=== PATIENT | female | born 1960 | race Hispanic/Latino ===

== ENCOUNTER 2018-08-23 12:55 | Outpatient (CLI) | payer OTHER ==
--- NOTE | 2018-08-23 16:17 | MMO ---
BILATERAL SCREENING MAMMOGRAM: Date: 08/23/18 COMPARISON: 09/22/11 and 08/01/07 studies. HISTORY: Annual screening exam. This patient's mammogram was interpreted with the assistance of computer-aided detection. FINDINGS: The breasts show some heterogeneously dense areas of breast parenchymal density. This is most pronoun leeanna in the upper outer right breast. This is a stable finding as compared to the 2012 study, and also present on the prior exam, but more obscured by the other fibroglandular change noted at that time. There are some increased calcifications seen within the upper right breast along the posterior margin of this dense area of breast parenchymal change. I am not certain if the difference is related to te [place] difference or an actual real finding, but further evaluation is required. IMPRESSION: BIRADS 0: Incomplete: Need Additional Imaging Evaluation and/or Prior Mammograms for Comparison In this case, focal spot mag compression views of the area marked within the upper outer right breast . The facility will notify patient of need for additional imaging services. POS: LISA
== END 2018-08-23 12:56 | disposition home or self-care (01) ==
LOC: SCSMAMMO 12:55
PROVIDERS: ATTEND Family Medicine
DX: Z12.31 Encounter for screening mammogram for malignant neoplasm of breast (principal)
CPT/HCPCS: 77067

== ENCOUNTER 2018-08-30 10:19 | Outpatient (CLI) | payer OTHER ==
--- NOTE | 2018-08-31 09:00 | MMO ---
FILMS COMPARED: The present examination has been compared to prior imaging studies performed at [facility] on 03/24/1999, 03/28/2002, 03/28/2003, 07/16/2004, 08/16/2005 and 08/23/2018, and at [facility] on 08/01/2007. MAMMOGRAM FINDINGS: The breast is heterogeneously dense, which could obscure a lesion on mammography. The calcs in the right upper outer breast are likely benign. IMPRESSION: FINDING IN THE RIGHT BREAST IS PROBABLY BENIGN. FOLLOW-UP IN 6 MONTHS IS RECOMMENDED. ACR BI-RADS Category 3 - Probably benign finding - short interval follow-up suggested. [facility] will notify the patient of the need for additional imaging services.
== END 2018-08-30 10:20 | disposition home or self-care (01) ==
LOC: BICMAMMO 10:19
PROVIDERS: ATTEND Family Medicine
DX: R92.1 Mammographic calcification found on diagnostic imaging of breast (principal)
CPT/HCPCS: G0279